=== PATIENT | female | born 1975 | race Hispanic/Latino ===

== ENCOUNTER 2021-10-27 19:33 | Emergency (ER) | payer OTHER ==
[~2021-10-27] VITALS: Ht 170.2 cm; Wt 72.6 kg
[2021-10-27] MEDS ORDERED: ATIVAN1 MG PO ×2 (19:56→19:59)
[2021-10-27] MEDS ORDERED: VASOTEC5 MG PO ×2 (19:56→19:59)
== END 2021-10-27 20:17 | disposition home or self-care (01) ==
LOC: ER 19:58
DX: I10 Essential (primary) hypertension (principal); F43.9 Reaction to severe stress, unspecified; F32.A Depression, unspecified
CPT/HCPCS: 99282